=== PATIENT | male | born 2000 | race African-American/Black ===

== ENCOUNTER 2021-06-07 00:39 | Emergency (ER) | payer OTHER, SELFPAY ==
[2021-06-07 00:43] VITALS: BP 153/90; PULSE 103; RESP 16; TEMP 37.2; O2SAT 98
--- NOTE | 2021-06-07 00:44 | W.ED.GENAD ---
Discharge Plan Disposition Patient Disposition: HOME Condition: Good Discharge Details Clinical Impression: Finger laceration Primary Care Provider: Sharee,Local ED Provider: Gunner Centeno Discharge Instructions Instructions: Finger Laceration (ED) Additional Instructions: Wound care and dressing changes as we discussed starting 24 to 36 hours. If this dressing gets wet or falls off can just use antibiotic and ointment and band-aid to give wound covered and clean. Check on your tetanus status and get booster if it has been over 5 years since last one. Watch for signs of infection. Medical Decision Making Patient with superficial laceration to palmar aspect of finger that sweeps up and ends in an avulsion injury with loss of skin/tissue on the radial distal part of finger. Cuticle and nail in tact. Avulsion is not deep. No involvement of tendon or neurovascular bundle. Skin adhesive used to close the superficial portion of laceration and then xeroform and guaze used to cover avulsion injury. Patient visiting family up here, not sure of tetanus but will check when returns to college. Dressing changes and signs of infection discussed. Patient discharged. HPI General Mode of arrival: ambulatory. Date/Time Provider Initiated Documentation: 06/07/21 00:44. Limitations to Documentation: no limitations. Information obtained by: patient and RN notes reviewed. HPI Narrative: Patient presents to ED with right index finger laceration. Patient is right hand dominant. He cut his finger while trying to slice turkey. No other injury or complaint. Bleeding controlled. Unsure of last tetanus. Review of Systems Constitutional Constitutional: Denies fever(s) Cardiovascular Cardiovascular: Denies dyspnea Respiratory Respiratory: Denies cough and Denies dyspnea Musculoskeletal Musculoskeletal: Denies numbness and Denies tingling Integumentary/Breasts Comments: laceration Neurologic Neurologic: Denies numbness and Denies tingling ON LICENSE OF [facility] All Active Problems (Updated 06/07/21 @ 02:12 by Gunner Centeno MD) Finger laceration (Acute) Medical History (Updated 06/07/21 @ 02:12 by Gunner Centeno MD) No significant past medical history Social History Smoking/Tobacco Use Status: Never Smoking risk assessment performed?: Yes Alcohol Intake: current Alcohol Intake frequency: a few times a week Drug use: Occasionally Substance use type: marijuana Details: Weekly Do you feel safe at home: Yes Do you feel safe in your relationship?: Yes Exam Const General: no acute distress and well developed Nutritional Appearance: well nourished Orientation: alert and oriented x3 HENMT Head: normocephalic and atraumatic Neck Neck: trachea midline and supple Resp Effort & Inspection: normal respiratory effort Skin Trauma: laceration (superficial laceration mid palmar area of finger sweeping up to an avulsion) right 2nd finger Extrem Right upper extremity: hand Details: normal capillary refill, neuromotor exam normal, neurosensory exam normal, tendon exam normal, normal ROM of fingers and laceration Procedures Laceration Laceration 1: Site: hand Side (If applicable): right Size (cm): 1 Description: linear Depth: simple, single layer Pre-repair: irrigated extensively Skin layer closed with: other (adhesive)
== END 2021-06-07 01:17 | disposition home or self-care (01) ==
PROVIDERS: Emergency Provider Emergency Medicine
DX: S61.210A Laceration without foreign body of right index finger without damage to nail, initial encounter (principal); W26.0XXA Contact with knife, initial encounter
CPT/HCPCS: 12001